=== PATIENT | male | born 1995 | race Two or more races ===

== ENCOUNTER 2017-03-06 21:18 | Emergency (ER) | payer BC ==
[2017-03-06 21:24] VITALS: BP 107/67
[2017-03-06] MEDS ORDERED: Ibuprofen TAB* 600 MG PO ONE (21:36)
--- NOTE | 2017-03-06 21:38 | UC ---
Shruthi Redd Emily, scribed for Tamara Colbert MD on 03/06/17 at 2135 . Skin Complaint HPI - HPI Summary HPI Summary: This patient is a 22 year old M presenting to urgent care accompanied by bill barr with a chief complaint of lump on left wrist for 3 day. The CC is described as a painful pressure. little pain at rest. The patient rates the pain 5/10 in severity with movement. Symptoms aggravated by movement. Symptoms alleviated by Motrin. Patient denies numbness in L hand. no trauma. no h/o similar. no warmth, erythema. no trauma. Patient is R handed. Patient's medication reviewed this visit. - History of Current Complaint Chief Complaint: UCSkin Time Seen by Provider: 03/06/17 21:26 Stated Complaint: LUMP ON WRIST Hx Obtained From: Patient Onset/Duration: Sudden Onset, Lasting Days, Still Present Onset Severity: Moderate Current Severity: Moderate Pain Intensity: 5 Pain Scale Used: 0-10 Numeric Location: Hand (Left) Aggravating Factor(s): Other - Movement Alleviating Factor(s): OTC Meds - Allergy/Home Medications Allergies/Adverse Reactions: Allergies Allergy/AdvReac Type Severity Reaction Status Date / Time No Known Allergies Allergy Unverified 03/06/17 21:25 Home Medications: Home Medications NK [No Home Medications Reported] 03/06/17 [History Confirmed 03/06/17] Review of Systems Constitutional: Negative Skin: Other - Positive lump on L wrist Musculoskeletal: Other: - Positive pain in L wrist Neurological: Other - Negative numbness in L hand All Other Systems Reviewed And Are Negative: Yes PMH/Surg Hx/FS Hx/Imm Hx Previously Healthy: Yes Other Endocrine History: Negative diabetes Respiratory History: Asthma Other History Of: Negative For: Anticoagulant Therapy - Surgical History Surgical History: Yes Surgery Procedure, Year, and Place: Adenoids removed, 1999 - Family History Known Family History: Positive: Diabetes - Social History Occupation: Employed Full-time Alcohol Use: Occasionally Substance Use Type: Marijuana Smoking Status (MU): Light Every Day Tobacco Smoker Physical Exam Triage Information Reviewed: Yes Appearance: Well-Appearing, No Pain Distress, Well-Nourished Vital Signs: Initial Vital Signs Temp 98.3 F 03/06/17 21:22 Pulse 86 03/06/17 21:22 Resp 12 03/06/17 21:22 BP 107/67 10/16/17 21:22 Pulse Ox 99 03/06/17 21:22 Vital Signs Reviewed: Yes Eyes: Positive: Conjunctiva Clear ENT: Positive: Hearing grossly normal Neck: Positive: Supple Respiratory: Positive: No respiratory distress, No accessory muscle use Cardiovascular: Positive: Other: - 2+ radial, 2+ ulnar CBt < 2 sec all digits Bowel Sounds: Positive: Present Musculoskeletal Exam: Normal Musculoskeletal: Positive: Other: - + flex/ext elbow, wrist + pronate/supinate Neurological Exam: Normal Neurological: Positive: Other: - + thumb up, a ok, finger spread, finger cross Psychological Exam: Normal Skin: Positive: Other - dorsum left hand over 2nd mc pt with 2 cm area raised area no warmth, erythema minimally mobile - c/w ganglion cys Course/Dx - Course Course Of Treatment: pt with apparent ganglion cyst left dorsum hand. mild TTP. no concer for cellulitis. pt placed in splint for support. referral to hand. motrin/apap - Diagnoses Provider Diagnoses: ganglion cyst Discharge - Discharge Plan Condition: Stable Disposition: HOME Patient Education Materials: Ganglion Cysts (ED) Referrals: Vilma Garcia MD [Primary Care Provider] - Aquiles Craig MD [Medical Doctor] - Additional Instructions: - Wear jana wrap or splint for comfort and support - Okay to alternate ibuprofen (Advil, Motrin) and tylenol every 3hours for pain. Take with food. Do NOT take for more than 4-5 days - Contact the hand surgeon referral to schedule a follow-up appointment. Contact the hand surgeon, your doctor or return with questions or concerns The documentation as recorded by the Shruthi thomas Emily accurately reflects the service I personally performed and the decisions made by , Tamara Colbert MD.
== END 2017-03-06 21:47 | disposition home or self-care (01) ==
LOC: UCEAST 21:18
DX: M67.40 Ganglion, unspecified site (principal); F17.210 Nicotine dependence, cigarettes, uncomplicated
CPT/HCPCS: 99212; A9270-GY; G0463

== ENCOUNTER 2017-11-02 11:27 | Emergency (ER) | payer BC ==
[2017-11-02 11:47] VITALS: BP 99/69
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
--- NOTE | 2017-11-02 12:41 | RAD ---
HISTORY: right elbow pain COMPARISONS: None VIEWS: 4, Frontal, lateral, and oblique views of the right elbow FINDINGS: BONE DENSITY: Normal. BONES: There is no displaced fracture. JOINTS: There is no arthropathy. ALIGNMENT: There is no dislocation. SOFT TISSUES: Unremarkable. OTHER FINDINGS: None. IMPRESSION: NO ACUTE OSSEOUS INJURY. IF SYMPTOMS PERSIST, RECOMMEND REPEAT IMAGING.
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
--- NOTE | 2017-11-02 12:44 | RAD ---
INDICATION: Right hand injury COMPARISON: None TECHNIQUE: AP, lateral, and oblique views were obtained. FINDINGS: The bony structures, joint spaces, and soft tissues are normal for age. IMPRESSION: NEGATIVE EXAMINATION.
== END 2017-11-02 13:20 | disposition home or self-care (01) ==
LOC: UCEAST 11:27
DX: S50.311A Abrasion of right elbow, initial encounter (principal); S80.212A Abrasion, left knee, initial encounter; S80.211A Abrasion, right knee, initial encounter; S60.221A Contusion of right hand, initial encounter; M25.562 Pain in left knee; M25.561 Pain in right knee; V28.9XXA Unspecified motorcycle rider injured in noncollision transport accident in traffic accident, initial encounter; Y92.9 Unspecified place or not applicable; F17.290 Nicotine dependence, other tobacco product, uncomplicated
CPT/HCPCS: 99212; G0463

== ENCOUNTER 2018-10-25 07:57 | Emergency (ER) | payer BC ==
[2018-10-25 08:13] VITALS: BP 111/71
--- NOTE | 2018-10-25 08:23 | UC ---
Nausea/Vomiting/Diarrhea HPI - HPI Summary HPI Summary: Pt is 23 y/o male with diarrhea, nausea, and vomiting beginning this morning. States 3 months ago he had a GI workup consisting of endoscopy and colonoscopy for intermittent diarrhea and a "gnawing" abdominal pain. He denies any abdominal pain today and states today's symptoms are different than what he experienced previously. GI workup showed gastroenteritis. Denies fevers. He also notes generalized weakness, fatigue, chills. States he has been unable to keep water down. - History of Current Complaint Chief Complaint: UCAbdominalPain Stated Complaint: VOMITING/DIARRHEA Time Seen by Provider: 10/25/18 08:07 Hx Obtained From: Patient Onset/Duration: Sudden Onset, Lasting Hours Timing: Constant Severity Initially: Mild Severity Currently: Mild Pain Intensity: 5 Pain Scale Used: 0-10 Numeric Location: Diffuse Character: Cramping Aggravating Factor(s): Nothing Alleviating Factor(s): Nothing Nausea/Vomiting Presence: Nauseated, Vomiting Vomiting Frequency: Every 3-4 hours Nausea/Vomiting Duration: 0-12 hours Diarrhea Presence: Yes Diarrhea Frequency: Every 1-2 hours Diarrhea Duration: 0-12 hours - Risk Factors Influenza Risk Factors: Negative Surgical Obstruction Risk Factor(s): Negative - Allergies/Home Medications Allergies/Adverse Reactions: Allergies Allergy/AdvReac Type Severity Reaction Status Date / Time No Known Allergies Allergy Verified 10/25/18 08:04 Home Medications: Home Medications Fluticasone NASAL SPRAY 50MCG* [Flonase NASAL SPRAY 50MCG*] 2 spray BOTH NARES DAILY 10/25/18 [History Confirmed 10/25/18] PMH/Surg Hx/FS Hx/Imm Hx Previously Healthy: No GI/ History: Other - Gastroenteritis Other History Of: Negative For: Anticoagulant Therapy - Surgical History Surgical History: Yes Surgery Procedure, Year, and Place: Adenoids removed, 1999 - Family History Known Family History: Positive: Diabetes - Social History Alcohol Use: Daily Alcohol Amount: 1 beer/ day Substance Use Type: None Smoking Status (MU): Light Every Day Tobacco Smoker Amount Used/How Often: 1/2 PPD Review of Systems All Other Systems Reviewed And Are Negative: Yes Constitutional: Positive: Chills, Fatigue. Negative: Fever Gastrointestinal: Positive: Abdominal Pain - Mild, Vomiting, Diarrhea, Nausea Genitourinary: Positive: Negative Is Patient Immunocompromised?: Yes Physical Exam Triage Information Reviewed: Yes Appearance: No Pain Distress Vital Signs: Initial Vital Signs Temp 98 F 10/25/18 08:05 Pulse 73 10/25/18 08:05 Resp 16 10/25/18 08:05 BP 111/71 10/25/18 08:05 Pulse Ox 99 10/25/18 08:05 Vital Signs Reviewed: Yes Eye Exam: Normal Eyes: Positive: Conjunctiva Clear ENT Exam: Normal ENT: Positive: Normal ENT inspection Neck exam: Normal Neck: Positive: Supple, Nontender Respiratory Exam: Normal Respiratory: Positive: Lungs clear Cardiovascular Exam: Normal Cardiovascular: Positive: RRR Abdomen Description: Negative: Nontender - Diffusely tender to palpation, Distended, McBurney's Point Tenderness Bowel Sounds: Positive: Hypoactive Musculoskeletal Exam: Normal Musculoskeletal: Positive: Strength Intact, ROM Intact Neurological Exam: Normal Neurological: Positive: Alert, Muscle Tone Normal Psychological Exam: Normal Skin Exam: Normal Skin: Negative: Rashes Naus/Vom/Diarrhea Course/Dx - Course Course Of Treatment: 23 y/o male with hx of gastroenteritis with nausea, vomiting, diarrhea, diffuse abdominal cramping beginning this morning. History of colonoscopy to rule out Crohn's/colitis. Known lactose intolerance. Also had a meal of cheese on Post[employer] last night. Questionable celiac disease. ODT ondansetron and IV fluids administered, patient improved and discharged home. To f/u with PCP/GI. Patient seen in collaboration with the physician branch assistant student. - Differential Dx/Diagnosis Differential Diagnoses - Male: Irritable Bowel Syndrome - lactose intol, Celiac , Enterocolitis, Ulcerative Colitis/Crohn's Disease, Gastroenteritis (Viral), Gastroenteritis (Bacterial) Provider Diagnosis: Irritable bowel syndrome, Lactose intolerance in adult, Non-celiac gluten sensitivity Condition At Discharge: Improved Discharge - Sign-Out/Discharge Documenting (check all that apply): Patient Departure All imaging exams completed and their final reports reviewed: No Studies - Discharge Plan Condition: Improved Disposition: HOME Prescriptions: Hyoscyamine Sulfate 0.125 mg PO Q4H PRN #30 tab PRN Reason: abdominal cramping Ondansetron ODT TAB* [Zofran 4 MG Odt TAB*] 4 mg PO Q6H PRN #12 tab.odt PRN Reason: Nausea Patient Education Materials: Irritable Bowel Syndrome (ED) Forms: *Work Release Referrals: No Primary Care Phys,NOPCP [Primary Care Provider] - Additional Instructions: Follow-up with Dr. Shanna Stockton your youth accommodation support worker. Inquire about gluten sensitivity biopsy. Avoid dairy and wheat product. Drink plenty of fluids, Gatorade G2 may help with hydration. Imodium can be taken for diarrhea. Return with worse, fever, dehydration, new symptoms or other concerns. - Billing Disposition and Condition Condition: IMPROVED Disposition: Home - Attestation Statements Document Initiated by Katty: Yes Documenting Scribe: Davy East Provider For Whom Katty is Documenting (Include Credential): Dr. Rodrick Vieira Scribe Attestation: IDavy, scribed for Dr. Rodrick Vieira on 10/25/18 at 1118. Scribe Documentation Reviewed: Yes Provider Attestation: The documentation as recorded by the aliaibe, Davy East accurately reflects the service I personally performed and the decisions made by , Dr. Rodrick Vieira Status of Scribe Document: Viewed
[2018-10-25] MEDS ORDERED: Ondansetron ODT TAB* 4 MG PO ONE (08:33)
== END 2018-10-25 08:40 | disposition home or self-care (01) ==
LOC: UCEAST 07:57
DX: K58.0 Irritable bowel syndrome with diarrhea (principal); E73.9 Lactose intolerance, unspecified; K90.41 Non-celiac gluten sensitivity; F17.210 Nicotine dependence, cigarettes, uncomplicated
CPT/HCPCS: 99212; A9270-GY; G0463